=== PATIENT | male | born 1960 | race Hispanic/Latino ===

== ENCOUNTER 2025-01-11 05:53 | Day surgery (SDC) | payer OTHER ==
[2025-01-08 16:42] LABS: BASOPHILS % 0.5 % (0.0-1.0); EOSINOPHILS % 1.3 % (0.0-6.0); LYMPHOCYTES % 20.9 % (18.0-39.1); MONOCYTES % 10.9 % (4.4-11.3); NEUTROPHILS % 66.0 % (38.7-80.0); RED CELL DISTRIBUTION WIDTH 12.5 % (11.7-14.4)
[2025-01-08 16:54] LABS: INR 0.96
[2025-01-08 17:01] LABS: CHOL/HDL RATIO 4.8 (3.9-4.7); EST GLOMERULAR FILTRATION RATE 77.0 ML/MIN (>=60); LDL CHOLESTEROL 93.0 MG/DL (60-130)
[2025-01-11] VITALS (10 sets, daily range): BP systolic 107–136; BP diastolic 76–85; PULSE 52–69; RESP 14–19; TEMP 97.3–97.6; O2SAT 96–99
[~2025-01-11] VITALS: Ht 172.7 cm; Wt 100.7 kg
[~2025-01-11 05:53] MED LIST: ASPIRIN CHEW81 MG PO; LIPITOR20 MG PO
[2025-01-11] MEDS ORDERED: HEPARIN SOD/SOD CHLORIDE 2,000 ML ONE (06:40)
[2025-01-11] MEDS ORDERED: IOPAMIDOL 370 MG/ML 100 ML INFUS..BTL INJ ONE (06:40)
[2025-01-11] MEDS ORDERED: LIDOCAINE HCL 1% LOCAL INJ 20 ML VIAL ONE (06:40)
[2025-01-11] MEDS ORDERED: HEPARIN SOD (PORCINE) 1000 UNIT/ML 30ML ONE (08:24)
[2025-01-11] MEDS ORDERED: NITROGLYCERIN/D5W 200 MCG/ML 250 ML ONE (08:24)
[2025-01-11] MEDS ORDERED: VERAPAMIL HCL 2.5 MG/ML 2 ML VIAL ONE (08:24)
[2025-01-11] MEDS ORDERED: SODIUM CHLORIDE 0.9% 1000ML 1,000 ML ONE (08:24)
[2025-01-11] MEDS ORDERED: MIDAZOLAM HCL 2 MG/2 ML VIAL ONE (08:40)
[2025-01-11] MEDS ORDERED: FENTANYL CITRATE/PF 100MCG/2 ML INJ ONE (08:40)
== END 2025-01-11 11:00 | disposition home or self-care (01) ==
LOC: CATH LAB 05:53
PROVIDERS: ATTEND Internal Medicine Cardiovascular Disease
DX: I25.10 Atherosclerotic heart disease of native coronary artery without angina pectoris (principal); E78.00 Pure hypercholesterolemia, unspecified; Z86.73 Personal history of transient ischemic attack (TIA), and cerebral infarction without residual deficits; Z79.82 Long term (current) use of aspirin; Z79.899 Other long term (current) drug therapy; Z68.34 Body mass index [BMI] 34.0-34.9, adult
CPT/HCPCS: 36415; 71046; 76937; 80048; 80061; 85025; 85610; 85730; 93005; 93460; C1887; C1894; J1644; J2003; J2250; J3010; J7030; Q9967; 93454; 99152